=== PATIENT | male | born 1990 | race African-American/Black ===

== ENCOUNTER 2019-11-01 22:37 | Emergency (ER) | payer SELFPAY ==
[~2019-11-01] VITALS: Ht 175.3 cm; Wt 75.0 kg
[2019-11-02 06:05] VITALS: BP 121/69
== END 2019-11-02 06:00 | disposition home or self-care (01) ==
LOC: ER 22:37
DX: R51 Headache (principal); R09.89 Other specified symptoms and signs involving the circulatory and respiratory systems
CPT/HCPCS: 71045; 82962; 93005; 99283